=== PATIENT | female | born 1950 | race Caucasian/White ===

== ENCOUNTER 2020-06-16 12:52 | Emergency (ER) | payer MEDICARE ==
[2020-06-16 13:27] LABS: #Lymphocytes 0.9 thou/uL (1.20-3.40); #Monocytes 0.3 thou/uL (0.11-0.59); #Neutrophils 2.4 thou/uL (1.40-6.50); %Basophils 0.6 % (0.0-1.0); %Eosinophils 0.1 % (0.0-10.0); %Lymphocytes 24.8 % (21.0-51.0); %Monocytes 7.1 % (0.0-10.0); %Neutrophils 67.4 % (42.0-75.0); Hemoglobin 13.9 g/dL (12.0-16.0); Mean Corpuscular HGB CONC 32.4 g/dL (32.0-36.0); Mean Corpuscular Hemoglobin 28.4 pg (27.0-31.0); Mean Corpuscular Volume 87.5 fL (78.0-98.0); Mean Platelet Volume 9.2 fL (7.4-10.4); Platelet Count 142 thou/uL (130-400); RBC Distribution Width 14.6 % (11.5-14.5); Red Blood Cell (RBC) Count 4.89 mill/uL (4.20-5.40); White Blood Cell (WBC) Count 3.6 thou/uL (4.8-10.8)
[2020-06-16 13:43] LABS: ALT (SGPT) 26 U/L (8-55); AST (SGOT) 30 U/L (5-34); Albumin 3.6 g/dL (3.4-4.8); Alkaline Phosphatase 121 U/L (40-110); Anion Gap 18 mmol/L (10-20); BUN (Urea Nitrogen) 37 mg/dL (9.8-20.1); Bilirubin, Total 0.3 mg/dL (0.2-1.2); Calc. Creatinine Clearance 0 mL/min (70-130); Calcium 8.1 mg/dL (7.8-10.44); Carbon Dioxide 23 mmol/L (23-31); Chloride 94 mmol/L (98-107); Glucose 435 mg/dL (80-115); Potassium 3.5 mmol/L (3.5-5.1); Protein, Total 6.6 g/dL (6.0-8.3); Sodium 131 mmol/L (136-145)
--- NOTE | 2020-06-16 20:22 | RAD ---
PORTABLE CHEST: Date: 06-16-2020 Comparison: 10-22-18 FINDINGS: The heart is normal in size. There is some linear streaking in the left base that may be subsegmental atelectasis. The lungs markings in general are a little prominent, but no different over time. No lo bar consolidation, effusion, or pneumothorax was seen. Some old rib fractures are seen in the left up per chest. I cannot exclude newer ones, but at least some of the are old. IMPRESSION: 1. Old left sided rib fractures. 2. Left basilar streaking, most likely atelectasis. POS: HOME
--- NOTE | 2020-06-16 21:00 | CT ---
CT OF THE THORAX WITHOUT CONTRAST: Date: 06-16-2020 FINDINGS: There is no sign of mediastinal mass. There is slightly more lymph nodes than usual in the mediastinu m in the paratracheal regions, the largest being about 1.4 cm in size just above the darlene. The find ings are nonspecific. Some coronary artery calcification is seen in each circulation. Regarding the lungs, there is a patchy parenchymal density in the right upper lobe that is probably r elated to infection, recent or remote. Elsewhere, there are no major lobar infiltrates, but there are findings of scarring and/or atelectasis in the lower lobes, especially left lower lobe. There is no pneumothorax or significant pleural effusion. There is definitely a fracture of the left 6th rib, but it does not appear acute. It may be subacute or old. Some of the ribs above this level show a little bit of unusual turns in the cortex suggesting older rib fractures. No dramatic acute fracture is seen. Scans into the upper abdomen showed no acute changes in the areas visualized. The rounded soft tissue density just above and medial to the spleen is probably ectopic splenic tissue. IMPRESSION: 1. Fracture of the left 6th rib which is either old or subacute. Other older fractures are suggested above. No acute change such as a pneumothorax. 2. Basilar atelectasis and scarring, most prominent on the left side. Findings discussed with Dr. Garrison at 1438 on 06-16-2020. POS: HOME
== END 2020-06-16 18:28 | disposition home or self-care (01) ==
LOC: BURERS 12:52
DX: S22.32XA Fracture of one rib, left side, initial encounter for closed fracture (principal); I10 Essential (primary) hypertension; E11.9 Type 2 diabetes mellitus without complications; I25.10 Atherosclerotic heart disease of native coronary artery without angina pectoris; F17.290 Nicotine dependence, other tobacco product, uncomplicated; W19.XXXA Unspecified fall, initial encounter
CPT/HCPCS: 71045; 71250; 80053; 83880; 84484; 85025; 93005

== ENCOUNTER 2020-06-19 18:53 | Emergency (ER) | payer MEDICARE ==
[2020-06-19] MEDS ORDERED: Azithromycin 500 MG VIAL ONE (19:28)
[2020-06-19] MEDS ORDERED: cefTRIAXone\\ROCEPHIN 2 GM VIAL ONE (19:28)
--- NOTE | 2020-06-19 19:31 | RAD ---
PORTABLE CHEST: 06/19/20 An AP portable film at 191 is compared with a 06/16 chest film, as well as the CT done on that date. The patient has developed new infiltrates in the lung bases, especially the left lower lobe. There is a decided interstitial element to some of these infiltrates. Given the patient's history and current conditions, COVID should be included in the differential. The upper lobes are relatively clear. Ther e are no large effusions. The cardiac size is normal. IMPRESSION: New developing basilar infiltrates, especially left lower lobe. Findings discussed with Dr. Lima at 1920 on 06/19/20. POS: HOME
[2020-06-19 19:34] LABS: #Lymphocytes 0.6 thou/uL (1.20-3.40); #Monocytes 0.3 thou/uL (0.11-0.59); #Neutrophils 3.6 thou/uL (1.40-6.50); %Basophils 0.2 % (0.0-1.0); %Eosinophils 0.1 % (0.0-10.0); %Lymphocytes 14.4 % (21.0-51.0); %Monocytes 5.8 % (0.0-10.0); %Neutrophils 79.6 % (42.0-75.0); Hemoglobin 14.1 g/dL (12.0-16.0); Mean Corpuscular HGB CONC 32.5 g/dL (32.0-36.0); Mean Corpuscular Hemoglobin 28.2 pg (27.0-31.0); Mean Corpuscular Volume 86.9 fL (78.0-98.0); Platelet Count 170 thou/uL (130-400); RBC Distribution Width 14.6 % (11.5-14.5); White Blood Cell (WBC) Count 4.5 thou/uL (4.8-10.8)
[2020-06-19 19:45] LABS: ALT (SGPT) 25 U/L (8-55); AST (SGOT) 48 U/L (5-34); Albumin 3.3 g/dL (3.4-4.8); Alkaline Phosphatase 114 U/L (40-110); Anion Gap 20 mmol/L (10-20); BUN (Urea Nitrogen) 42 mg/dL (9.8-20.1); Bilirubin, Total 0.4 mg/dL (0.2-1.2); CK (CPK) 210 U/L (29-168); Calc. Creatinine Clearance 0 mL/min (70-130); Calcium 7.6 mg/dL (7.8-10.44); Carbon Dioxide 30 mmol/L (23-31); Chloride 86 mmol/L (98-107); Globulin 2.5 g/dL (2.4-3.5); Glucose 531 mg/dL (80-115); Potassium 3.4 mmol/L (3.5-5.1); Protein, Total 5.8 g/dL (6.0-8.3); Sodium 133 mmol/L (136-145)
[2020-06-19 20:02] LABS: CKMB 1.3 ng/mL (0-6.6)
[2020-06-19 20:17] LABS: SARS-CoV-2 NAA Rapid Test DETECTED (NotDetected)
== END 2020-06-19 20:15 | disposition short-term general hospital (02) ==
LOC: BURERS 18:53
DX: U07.1 COVID-19 (principal); J12.89 Other viral pneumonia; J96.00 Acute respiratory failure, unspecified whether with hypoxia or hypercapnia; I25.10 Atherosclerotic heart disease of native coronary artery without angina pectoris; E11.9 Type 2 diabetes mellitus without complications; I10 Essential (primary) hypertension; Z87.891 Personal history of nicotine dependence
CPT/HCPCS: 0240U; 71045; 80053; 82550; 82553; 83605; 84484; 85025; 85379; 87040; 96365; J0456; J0696

== ENCOUNTER 2020-07-02 19:25 | Inpatient (IN) | payer MEDICARE ==
[2020-07-02 22:41] VITALS: BMI 28.3
[2020-07-03] MEDS ORDERED: hydrALAZINE 25 MG TAB PO PRN (07:00)
[2020-07-03] MEDS: FLUoxetine HCl 10 MG CAP PO SCH (08:11)
[2020-07-03] MEDS: Cholecalciferol (Vitamin D3) 400 UNITS TAB PO SCH (08:14)
[2020-07-03] MEDS: Aspirin 81 mg Enteric Coated Tablet PO SCH (08:14)
[2020-07-03] MEDS: Pregabalin 50 MG CAP PO SCH ×3 (08:15→20:25)
[2020-07-03] MEDS: predniSONE 20 MG TAB PO SCH (08:16)
[2020-07-03] MEDS: NIFEdipine XL 30 MG TAB PO SCH (08:17)
[2020-07-03] MEDS: Metoprolol Tartrate 25 MG TAB PO SCH ×2 (08:18→20:27)
[2020-07-03] MEDS: Furosemide 20 MG TAB PO SCH (08:18)
[2020-07-03] MEDS: Ascorbic Acid 500 mg Chewable Tablet PO SCH (08:18)
[2020-07-03] MEDS: Clopidogrel Bisulfate 75 MG TAB PO SCH (08:19)
[2020-07-03] MEDS: glipiZIDE 5 MG TAB PO SCH ×2 (08:19→16:23)
[2020-07-03] MEDS: Cilostazol 100 MG TAB PO SCH ×2 (08:19→20:27)
[2020-07-03] MEDS: UBIDECARENONE 10 MG PO SCH (08:28)
[2020-07-03] MEDS: Lantus 1000 UNITS/10 ML VIAL SC SCH ×2 (08:29→20:25)
[2020-07-03] MEDS: Doxycycline 100 MG CAP PO SCH ×2 (08:31→20:27)
[2020-07-03] MEDS ORDERED: FLUOXETINE HCL 20 MG PO SCH (09:00)
[2020-07-03] MEDS ORDERED: Non-Formulary Item 1 EACH (Pregabalin [Lyrica] 150 MG Capsule) PO SCH (09:00)
[2020-07-03] MEDS ORDERED: Non-Formulary Item 1 EACH (Omeprazole [Omeprazole] 40 MG Capsule.Dr) PO SCH (09:00)
[2020-07-03] MEDS ORDERED: Non-Formulary Item 1 EACH (Insulin Glargine,Hum.Rec.Anlog [Lantus Solostar] 100 UNIT/ML P SQ SCH (09:00)
[2020-07-03] MEDS ORDERED: Non-Formulary Item 1 EACH (Cilostazol [Cilostazol] 50 MG Tablet) PO SCH (09:00)
[2020-07-03] MEDS ORDERED: Non-Formulary Item 1 EACH (Pravastatin Sodium [Pravastatin Sodium] 80 MG Tablet) PO SCH (09:00)
[2020-07-03] MEDS ORDERED: NIFEDIPINE 60 MG PO SCH (09:00)
[2020-07-03] MEDS ORDERED: Non-Formulary Item 1 EACH (Ubidecarenone [Co Q-10] 10 MG Capsule) PO SCH (09:00)
--- NOTE | 2020-07-03 16:53 | HP ---
HISTORY OF PRESENT ILLNESS: A 70-year-old female admitted to [facility] for continued recovery and therapy of COVID pneumonia, which is resolving. She initially experienced a fall on the 16 of June and was seen in the emergency room at [place], diagnosed with 6 left rib fractures and at that time was experiencing difficulty breathing, but it was thought to be related to her rib pain. On 06/19/2020, she returned to [facility]'s ER with shortness of breath, hypoxia, and low-grade fever. Upon arrival her O2 saturation on room air was 38% and 69% on 100% face mask. Her rapid COVID was positive and her chest x-ray showed bibasilar infiltrates. She was transferred and admitted to [facility] in [place]. Over the course of her acute stay, she was maintained on high-flow oxygen. Over the last few days she was gradually weaned down to 2 L per NC, and transferred yesterday. Since arrival, she has maintained her saturations at 93% on 2 L. CURRENT MEDICATIONS: She is on, 1. Lyrica 200 mg t.i.d. 2. Fluoxetine 40 mg daily. 3. Metoprolol 25 mg b.i.d. 4. Nifedipine 60 mg daily. 5. Hydralazine 25 mg p.o. t.i.d. 6. Atorvastatin 20 mg daily. 7. Lantus insulin 20 units b.i.d. 8. Furosemide 20 mg daily. 9. CoQ10 daily. 10. Aspirin 81 mg daily. 11. Cilostazol 50 mg b.i.d. 12. Plavix 75 mg daily. 13. Glipizide 5 mg b.i.d. She was started on prednisone and doxycycline as part of her COVID regimen and is being weaned off both of those. PAST MEDICAL HISTORY: DMT2, hypertension, CAD. PAST SURGICAL HISTORY: Gallbladder, Hyst, CABG. FAMILY HISTORY: Noncontributory. SOCIAL HISTORY: prior to this admission was a tobacco smoker and vaped, She agrees today to quit smoking,denies nicotine craving. ALLERGIES: NO KNOWN ALLERGIES. REVIEW OF SYSTEMS: CONSTITUTIONAL: She denies fever, chills, sweats. She reports poor appetite, weight loss. EYES: She denies vision changes, eye pain, discharge or redness. ENT: She denies hearing loss, ear pain, URI or sore throat. RESPIRATION: She denies cough or wheeze. History of asthma. She does continue to experience shortness of breath especially with exertion. CV: She denies chest pain, edema, claudication, palpitations. GI: She denies constipation, diarrhea, indigestion, dysphagia, food allergies or intolerances. : She denies frequency, dysuria, nocturia, incontinence. MUSCULOSKELETAL: She denies muscle weakness, pain, joint pain, joint swelling. SKIN: She denies rash or lesion. HEMATOLOGIC/LYMPHATIC: She denies bruises easily, anemia, history of blood clots or blood cancer. NEURO: She denies dizziness, syncope, weakness, ataxia or confusion. She complains of a headache this morning. PSYCH: She denies past mental illness, sleep disturbance, depression or anxiety. PHYSICAL EXAMINATION: VITAL SIGNS: Temperature 97.9, heart rate 86, respirations 18, 93% on 2 L nasal cannula, blood pressure 179/85. GENERAL APPEARANCE: Alert, oriented x3. No acute distress. EYES: Conjunctiva clear. No discharge. PERRLA. EOMs intact. Oral cavity moist mucous membranes. No ulcer or lesion. Normal dentition. NECK: Thyroid supple. No lymphadenopathy. No JVD. No carotid bruit. No thyromegaly. CV: Regular rate and rhythm. Normal S1, S2. No murmurs. RESPIRATIONS: Clear to auscultation. Good air entry bilaterally. No wheezes. ABDOMEN: Soft, nontender. No mass or megaly. Normal bowel sounds. NEURO: CN II through XII grossly intact. Motor function normal. SKIN: Normal. No rash. PSYCH: Subdued mood, appropriate affect. Normal speech. No thought disorder. However, she requests that her family not be allowed to visit at this time. She offered no explanation for that request. LABORATORY DATA: Her most recent CBC, white blood count 10.1, H and H 15.4, 45.1, platelet count 453, neutrophils 87.5, lymphocytes 6.3, no bands. This is done on 06/30/2020. Also on 06/30, sodium 136, potassium 3.7, chloride 106, carbon dioxide 21. BUN 25, creatinine 1.06, GFR 52. Her glucose was 410, calcium 8.4, magnesium 2. IMAGING STUDIES: Her most recent chest x-ray was done on 06/23/2020, bilateral basilar lung infiltrates, improved. ASSESSMENT: 1. COVID pneumonia, resolving. 2. Weight loss of 12 pounds since admission 3. Diabetes mellitus type 2- uncontrolled 4. Hypertension. 5. Coronary artery disease. PLAN: 1. Continue to monitor respiratory status closely, O2 to keep sats above 92%. 2. Physical Therapy to improve stamina and strength. 3. Wean off prednisone. 4. Manage hyperglycemia with insulin, adjust other medications as needed 5. Manage hypertension with current medications, titrate as necessary. 6. Explore her home situation with and family support; provide resources as needed. Job ID: [id number] [id number]
[2020-07-03] MEDS ORDERED: Dextrose 50% Abboject 50 ML SYRINGE IVP PRN (17:45)
[2020-07-03] MEDS ORDERED: Dextrose 5% in Water 1,000 ML IV PRN (17:45)
[2020-07-03] MEDS: HumaLOG 300 UNITS/3 ML VIAL SC PRN ×2 (18:17→20:50)
[2020-07-03] MEDS: Atorvastatin Calcium 10 MG TAB PO SCH (20:26)
[2020-07-03] MEDS ORDERED: HumaLOG 300 UNITS/3 ML VIAL SC SCH (21:00)
[2020-07-04 05:19] LABS: #Basophils 0.1 thou/uL (0.0-0.2); #Eosinphils 0.1 thou/uL (0.0-0.7); #Lymphocytes 1.9 thou/uL (1.20-3.40); #Monocytes 0.8 thou/uL (0.11-0.59); #Neutrophils 7.1 thou/uL (1.40-6.50); %Basophils 0.8 % (0.0-1.0); %Neutrophils 71.1 % (42.0-75.0); Hemoglobin 14.7 g/dL (12.0-16.0); Mean Corpuscular HGB CONC 32.2 g/dL (32.0-36.0); Mean Corpuscular Hemoglobin 28.6 pg (27.0-31.0); Mean Corpuscular Volume 88.8 fL (78.0-98.0); Mean Platelet Volume 8.1 fL (7.4-10.4); Platelet Count 381 thou/uL (130-400); RBC Distribution Width 14.7 % (11.5-14.5); Red Blood Cell (RBC) Count 5.13 mill/uL (4.20-5.40)
[2020-07-04 05:46] LABS: ALT (SGPT) 396 U/L (8-55); AST (SGOT) 116 U/L (5-34); Alkaline Phosphatase 322 U/L (40-110); Anion Gap 15 mmol/L (10-20); BUN (Urea Nitrogen) 25 mg/dL (9.8-20.1); Bilirubin, Total 0.6 mg/dL (0.2-1.2); Calc. Creatinine Clearance 70 mL/min (70-130); Calcium 8.6 mg/dL (7.8-10.44); Carbon Dioxide 22 mmol/L (23-31); Chloride 106 mmol/L (98-107); Globulin 2.5 g/dL (2.4-3.5); Glucose 148 mg/dL (80-115); Potassium 3.6 mmol/L (3.5-5.1); Protein, Total 5.5 g/dL (6.0-8.3); Sodium 139 mmol/L (136-145)
[2020-07-04] MEDS: Lantus 1000 UNITS/10 ML VIAL SC SCH ×2 (09:25→20:20)
[2020-07-04] MEDS: Pregabalin 50 MG CAP PO SCH ×3 (09:27→20:21)
[2020-07-04] MEDS: Aspirin 81 mg Enteric Coated Tablet PO SCH (09:27)
[2020-07-04] MEDS: Cilostazol 100 MG TAB PO SCH ×2 (09:28→20:22)
[2020-07-04] MEDS: NIFEdipine XL 30 MG TAB PO SCH (09:29)
[2020-07-04] MEDS: Metoprolol Tartrate 25 MG TAB PO SCH ×2 (09:29→20:23)
[2020-07-04] MEDS: Cholecalciferol (Vitamin D3) 400 UNITS TAB PO SCH (09:30)
[2020-07-04] MEDS: FLUoxetine HCl 10 MG CAP PO SCH (09:30)
[2020-07-04] MEDS: predniSONE 20 MG TAB PO SCH (09:30)
[2020-07-04] MEDS: Clopidogrel Bisulfate 75 MG TAB PO SCH (09:30)
[2020-07-04] MEDS: Furosemide 20 MG TAB PO SCH (09:30)
[2020-07-04] MEDS: Doxycycline 100 MG CAP PO SCH ×2 (09:31→20:23)
[2020-07-04] MEDS: Ascorbic Acid 500 mg Chewable Tablet PO SCH (09:31)
[2020-07-04] MEDS: UBIDECARENONE 10 MG PO SCH (09:32)
[2020-07-04] MEDS: traMADol HCl 50 MG TAB PO PRN (09:40)
[2020-07-04] MEDS: HumaLOG 300 UNITS/3 ML VIAL SC PRN ×3 (12:15→20:20)
[2020-07-04] MEDS: Atorvastatin Calcium 10 MG TAB PO SCH (20:22)
[2020-07-05] MEDS: HumaLOG 300 UNITS/3 ML VIAL SC PRN ×4 (07:44→21:27)
[2020-07-05] MEDS ORDERED: predniSONE 20 MG TAB PO SCH (08:00)
[2020-07-05] MEDS: Cilostazol 100 MG TAB PO SCH ×2 (09:12→21:24)
[2020-07-05] MEDS: FLUoxetine HCl 10 MG CAP PO SCH (09:13)
[2020-07-05] MEDS: Cholecalciferol (Vitamin D3) 400 UNITS TAB PO SCH (09:13)
[2020-07-05] MEDS: predniSONE 20 MG TAB PO SCH (09:13)
[2020-07-05] MEDS: Metoprolol Tartrate 25 MG TAB PO SCH ×2 (09:13→21:24)
[2020-07-05] MEDS: Clopidogrel Bisulfate 75 MG TAB PO SCH (09:13)
[2020-07-05] MEDS: Aspirin 81 mg Enteric Coated Tablet PO SCH (09:13)
[2020-07-05] MEDS: Ascorbic Acid 500 mg Chewable Tablet PO SCH (09:13)
[2020-07-05] MEDS: Furosemide 20 MG TAB PO SCH (09:13)
[2020-07-05] MEDS: NIFEdipine XL 30 MG TAB PO SCH (09:14)
[2020-07-05] MEDS: Pregabalin 50 MG CAP PO SCH ×3 (09:14→21:24)
[2020-07-05] MEDS: UBIDECARENONE 10 MG PO SCH (09:17)
[2020-07-05] MEDS: Lantus 1000 UNITS/10 ML VIAL SC SCH ×2 (09:18→21:27)
[2020-07-05] MEDS ORDERED: Calcium Carbonate 500 MG ChewTAB PO PRN ×2 (11:20→20:34)
[2020-07-05] MEDS: Atorvastatin Calcium 10 MG TAB PO SCH (21:24)
[2020-07-05] MEDS: traMADol HCl 50 MG TAB PO PRN (21:26)
[2020-07-06] MEDS: traMADol HCl 50 MG TAB PO PRN (04:20)
[2020-07-06] MEDS ORDERED: predniSONE 20 MG TAB PO SCH (08:00)
[2020-07-06] MEDS: Aspirin 81 mg Enteric Coated Tablet PO SCH (08:28)
[2020-07-06] MEDS: Clopidogrel Bisulfate 75 MG TAB PO SCH (08:28)
[2020-07-06] MEDS: Cilostazol 100 MG TAB PO SCH ×2 (08:28→20:43)
[2020-07-06] MEDS: Cholecalciferol (Vitamin D3) 400 UNITS TAB PO SCH (08:30)
[2020-07-06] MEDS: Pregabalin 50 MG CAP PO SCH ×3 (08:31→20:41)
[2020-07-06] MEDS: Furosemide 20 MG TAB PO SCH (08:31)
[2020-07-06] MEDS: NIFEdipine XL 30 MG TAB PO SCH (08:32)
[2020-07-06] MEDS: Lantus 1000 UNITS/10 ML VIAL SC SCH ×2 (08:33→20:46)
[2020-07-06] MEDS: FLUoxetine HCl 10 MG CAP PO SCH (08:33)
[2020-07-06] MEDS: Ascorbic Acid 500 mg Chewable Tablet PO SCH (08:33)
[2020-07-06] MEDS: UBIDECARENONE 10 MG PO SCH (08:34)
[2020-07-06] MEDS: Metoprolol Tartrate 25 MG TAB PO SCH ×2 (08:39→20:41)
[2020-07-06] MEDS: HumaLOG 300 UNITS/3 ML VIAL SC PRN ×3 (11:44→20:47)
[2020-07-06] MEDS: Atorvastatin Calcium 10 MG TAB PO SCH (20:39)
[2020-07-07 05:08] LABS: #Basophils 0.1 thou/uL (0.0-0.2); #Eosinphils 0.2 thou/uL (0.0-0.7); #Lymphocytes 2.5 thou/uL (1.20-3.40); #Monocytes 0.8 thou/uL (0.11-0.59); #Neutrophils 7.4 thou/uL (1.40-6.50); %Basophils 0.7 % (0.0-1.0); %Eosinophils 1.6 % (0.0-10.0); %Lymphocytes 22.9 % (21.0-51.0); %Monocytes 7.3 % (0.0-10.0); %Neutrophils 67.5 % (42.0-75.0); Hemoglobin 13.6 g/dL (12.0-16.0); Mean Corpuscular HGB CONC 32.9 g/dL (32.0-36.0); Mean Corpuscular Hemoglobin 28.5 pg (27.0-31.0); Mean Corpuscular Volume 86.6 fL (78.0-98.0); Mean Platelet Volume 7.7 fL (7.4-10.4); Platelet Count 322 thou/uL (130-400); RBC Distribution Width 14.2 % (11.5-14.5); Red Blood Cell (RBC) Count 4.76 mill/uL (4.20-5.40)
[2020-07-07 05:21] LABS: ALT (SGPT) 359 U/L (8-55); AST (SGOT) 107 U/L (5-34); Alkaline Phosphatase 321 U/L (40-110); Anion Gap 13 mmol/L (10-20); BUN (Urea Nitrogen) 29 mg/dL (9.8-20.1); Bilirubin, Total 0.4 mg/dL (0.2-1.2); Calc. Creatinine Clearance 60 mL/min (70-130); Calcium 9.4 mg/dL (7.8-10.44); Carbon Dioxide 29 mmol/L (23-31); Chloride 101 mmol/L (98-107); Globulin 2.5 g/dL (2.4-3.5); Glucose 130 mg/dL (80-115); Potassium 3.8 mmol/L (3.5-5.1); Protein, Total 5.5 g/dL (6.0-8.3); Sodium 139 mmol/L (136-145)
[2020-07-07] MEDS: Pregabalin 50 MG CAP PO SCH ×2 (09:15→20:22)
[2020-07-07] MEDS: FLUoxetine HCl 10 MG CAP PO SCH (09:16)
[2020-07-07] MEDS: Clopidogrel Bisulfate 75 MG TAB PO SCH (09:17)
[2020-07-07] MEDS: Cholecalciferol (Vitamin D3) 400 UNITS TAB PO SCH (09:17)
[2020-07-07] MEDS: Metoprolol Tartrate 25 MG TAB PO SCH ×2 (09:17→20:22)
[2020-07-07] MEDS: NIFEdipine XL 30 MG TAB PO SCH (09:17)
[2020-07-07] MEDS: Furosemide 20 MG TAB PO SCH (09:17)
[2020-07-07] MEDS: Ascorbic Acid 500 mg Chewable Tablet PO SCH (09:17)
[2020-07-07] MEDS: Aspirin 81 mg Enteric Coated Tablet PO SCH (09:19)
[2020-07-07] MEDS: Cilostazol 100 MG TAB PO SCH ×2 (09:19→20:24)
[2020-07-07] MEDS: UBIDECARENONE 10 MG PO SCH (09:20)
[2020-07-07] MEDS: Lantus 1000 UNITS/10 ML VIAL SC SCH ×2 (09:24→20:26)
--- NOTE | 2020-07-07 09:53 | CT ---
CT OF THE ABDOMEN WITH CONTRAST: DATE: 07/07/2020. COMPARISON: Comparison is made with a prior CT dated 11/27/2018. FINDINGS: The lung bases show extensive subacute and chronic interstitial changes. The patient has had COVID i n recent times, and this is on top of chronic changes. The current appearance suggests some further bronchiectasis and chronic changes in the lungs. Calcification is seen in the left coronary artery s ystem. A hiatal hernia was noted which was not seen on the prior study. Regarding the liver and spleen, I see no change since the 2019 scan. There are no focal hepatic lesi ons nor change in size of either organ. A piece of ectopic splenic tissue is see just anterior to th e spleen, as before. There has been a prior cholecystectomy. There are no dilated ducts in the bili lavell system. The pancreas and adrenal glands were unremarkable. A fat containing mass in the posterior left kidne y is most likely an angiomyelipoma. It measures 2.3 cm today and was closer to 2 cm in size before. The aorta shows calcification, but no aneurysm. The bowel shows no evidence of obstruction, but the re is a rather large fecal load in the colon. IMPRESSION: 1. No focal hepatic lesion seen. 2. Size of liver and spleen comparable to 2019. 3. Constipation. 4. Small angiomyelipoma of the left kidney, minimally larger than on the 2019 scan. 5. Hiatal hernia. 6. Rather extensive subacute and chronic basilar interstitial changes. POS: HOME
[2020-07-07] MEDS ORDERED: Iopamidol 370 76% 100 ML VIAL ONE (11:07)
[2020-07-07] MEDS: HumaLOG 300 UNITS/3 ML VIAL SC PRN ×2 (13:00→17:13)
[2020-07-07] MEDS: Senokot S 8.6-50 MG TAB PO PRN (13:00)
[2020-07-07] MEDS: traMADol HCl 50 MG TAB PO PRN (16:40)
[2020-07-07] MEDS: Atorvastatin Calcium 10 MG TAB PO SCH (20:22)
[2020-07-07] MEDS: Acetaminophen 500 MG TAB PO PRN (20:32)
[2020-07-08] MEDS: traMADol HCl 50 MG TAB PO PRN ×2 (04:31→20:19)
[2020-07-08] MEDS: NIFEdipine XL 30 MG TAB PO SCH (09:29)
[2020-07-08] MEDS: Senokot S 8.6-50 MG TAB PO PRN (09:29)
[2020-07-08] MEDS: Cilostazol 100 MG TAB PO SCH ×2 (09:30→20:17)
[2020-07-08] MEDS: Ascorbic Acid 500 mg Chewable Tablet PO SCH (09:30)
[2020-07-08] MEDS: FLUoxetine HCl 10 MG CAP PO SCH (09:30)
[2020-07-08] MEDS: Furosemide 20 MG TAB PO SCH (09:30)
[2020-07-08] MEDS: Pregabalin 50 MG CAP PO SCH ×2 (09:31→20:20)
[2020-07-08] MEDS: Clopidogrel Bisulfate 75 MG TAB PO SCH (09:32)
[2020-07-08] MEDS: UBIDECARENONE 10 MG PO SCH (09:32)
[2020-07-08] MEDS: Aspirin 81 mg Enteric Coated Tablet PO SCH (09:32)
[2020-07-08] MEDS: Cholecalciferol (Vitamin D3) 400 UNITS TAB PO SCH (09:32)
[2020-07-08] MEDS: Metoprolol Tartrate 25 MG TAB PO SCH ×2 (09:32→20:18)
[2020-07-08] MEDS: Lantus 1000 UNITS/10 ML VIAL SC SCH ×2 (09:34→20:21)
[2020-07-08] MEDS: HumaLOG 300 UNITS/3 ML VIAL SC PRN ×4 (10:15→20:24)
[2020-07-08] MEDS: Atorvastatin Calcium 10 MG TAB PO SCH (20:18)
[2020-07-08] MEDS: hydrOXYzine 25 MG TAB PO PRN (20:19)
[2020-07-09] MEDS: FLUoxetine HCl 10 MG CAP PO SCH (08:38)
[2020-07-09] MEDS: Pregabalin 50 MG CAP PO SCH ×2 (08:38→20:08)
[2020-07-09] MEDS: Aspirin 81 mg Enteric Coated Tablet PO SCH (08:39)
[2020-07-09] MEDS: Metoprolol Tartrate 25 MG TAB PO SCH ×2 (08:39→20:09)
[2020-07-09] MEDS: Ubidecarenone 50 MG CAP PO SCH (08:39)
[2020-07-09] MEDS: Clopidogrel Bisulfate 75 MG TAB PO SCH (08:39)
[2020-07-09] MEDS: Ascorbic Acid 500 mg Chewable Tablet PO SCH (08:39)
[2020-07-09] MEDS: Cholecalciferol (Vitamin D3) 400 UNITS TAB PO SCH (08:40)
[2020-07-09] MEDS: Furosemide 20 MG TAB PO SCH (08:40)
[2020-07-09] MEDS: NIFEdipine XL 30 MG TAB PO SCH (08:40)
[2020-07-09] MEDS: Cilostazol 100 MG TAB PO SCH ×2 (08:40→20:09)
[2020-07-09] MEDS: Lantus 1000 UNITS/10 ML VIAL SC SCH ×2 (08:48→20:10)
[2020-07-09] MEDS: Acetaminophen 500 MG TAB PO PRN (10:41)
[2020-07-09] MEDS: HumaLOG 300 UNITS/3 ML VIAL SC PRN ×3 (12:46→20:10)
[2020-07-09] MEDS: Atorvastatin Calcium 10 MG TAB PO SCH (20:09)
[2020-07-09] MEDS: traMADol HCl 50 MG TAB PO PRN (20:24)
[2020-07-10] MEDS: hydrOXYzine 25 MG TAB PO PRN ×2 (00:51→20:26)
[2020-07-10] MEDS: FLUoxetine HCl 10 MG CAP PO SCH (08:28)
[2020-07-10] MEDS: Aspirin 81 mg Enteric Coated Tablet PO SCH (08:33)
[2020-07-10] MEDS: Pregabalin 50 MG CAP PO SCH ×2 (08:35→20:19)
[2020-07-10] MEDS: Ascorbic Acid 500 mg Chewable Tablet PO SCH (08:36)
[2020-07-10] MEDS: Metoprolol Tartrate 25 MG TAB PO SCH ×2 (08:37→20:20)
[2020-07-10] MEDS: Cilostazol 100 MG TAB PO SCH ×2 (08:37→20:21)
[2020-07-10] MEDS: NIFEdipine XL 30 MG TAB PO SCH (08:38)
[2020-07-10] MEDS: Clopidogrel Bisulfate 75 MG TAB PO SCH (08:38)
[2020-07-10] MEDS: Furosemide 20 MG TAB PO SCH (08:38)
[2020-07-10] MEDS: Cholecalciferol (Vitamin D3) 400 UNITS TAB PO SCH (08:39)
[2020-07-10] MEDS: Lantus 1000 UNITS/10 ML VIAL SC SCH ×2 (08:39→20:56)
[2020-07-10] MEDS: Ubidecarenone 50 MG CAP PO SCH (08:40)
[2020-07-10] MEDS ORDERED: Insulin Glargine 35 UNITS in Pre-Filled Syringe 1 EACH SC SCH (09:00)
[2020-07-10] MEDS: HumaLOG 300 UNITS/3 ML VIAL SC PRN ×3 (12:41→20:57)
[2020-07-10] MEDS: Atorvastatin Calcium 10 MG TAB PO SCH (20:19)
[2020-07-10] MEDS: Senokot S 8.6-50 MG TAB PO PRN (20:25)
[2020-07-10] MEDS: traMADol HCl 50 MG TAB PO PRN (20:26)
[2020-07-11 05:30] LABS: ALT (SGPT) 160 U/L (8-55); AST (SGOT) 62 U/L (5-34); Albumin 2.8 g/dL (3.4-4.8); Alkaline Phosphatase 246 U/L (40-110); Bilirubin, Direct 0.2 mg/dL (0.1-0.3); Bilirubin, Total 0.4 mg/dL (0.2-1.2); Protein, Total 5.6 g/dL (5.8-8.1)
[2020-07-11] MEDS: FLUoxetine HCl 10 MG CAP PO SCH (08:07)
[2020-07-11] MEDS: NIFEdipine XL 30 MG TAB PO SCH (08:08)
[2020-07-11] MEDS: Metoprolol Tartrate 25 MG TAB PO SCH (08:08)
[2020-07-11] MEDS: Ubidecarenone 50 MG CAP PO SCH (08:08)
[2020-07-11] MEDS: Ascorbic Acid 500 mg Chewable Tablet PO SCH (08:08)
[2020-07-11] MEDS: Cholecalciferol (Vitamin D3) 400 UNITS TAB PO SCH (08:08)
[2020-07-11] MEDS: Pregabalin 50 MG CAP PO SCH (08:09)
[2020-07-11] MEDS: Cilostazol 100 MG TAB PO SCH (08:10)
[2020-07-11] MEDS: Furosemide 20 MG TAB PO SCH (08:10)
[2020-07-11] MEDS: Aspirin 81 mg Enteric Coated Tablet PO SCH (08:10)
[2020-07-11] MEDS: Clopidogrel Bisulfate 75 MG TAB PO SCH (08:11)
[2020-07-11] MEDS: Lantus 1000 UNITS/10 ML VIAL SC SCH (08:12)
[2020-07-11] MEDS: HumaLOG 300 UNITS/3 ML VIAL SC PRN ×2 (12:14→17:28)
[2020-07-11 17:34] VITALS: BP 141/74; TEMP 97.5
--- NOTE | 2020-07-13 09:16 | DIS ---
DATE OF ADMISSION: 07/02/2020 DATE OF DISCHARGE: 07/11/2020 DISCHARGE DIAGNOSES: 1. COVID pneumonia. 2. Rib fracture #6, status post fall. 3. Uncontrolled diabetes mellitus. 4. Peripheral vascular disease. 5. COPD-tobacco dependence HOSPITAL COURSE: A 70-year-old female admitted to [facility] for recovery of COVID pneumonia. She was originally admitted to [facility] in [place]. Just two days prior to her admission she had a fall that she is unable to explain, sustained a left rib fracture. She says her knees just crumpled. She returned on 06/19 to [facility] ER with hypoxia. Her initial room air sat was 38% and she was 69% on 100% face mask. Her chest x-ray showed bilateral bibasilar infiltrates. She initially required high-flow oxygen, was gradually weaned down to 2 L per nasal cannula and transferred to recover at a skilled unit. During the course of her stay, she has been unable to maintain O2 saturation of 88% to 89% on room air. Therefore, she is sent home with oxygen 1 to 2 L nasal cannula. Her physical exam showed bilateral basilar crackles despite her ability to effectively use her incentive spirometer. She did not exhibit a cough, although she is a former smoker and has a history of COPD. There is no echo available as most of her admissions have been at [facility]. On 07/07/2020, she bumped her LFTs from normal on 06/22/2020. Her AST at that time was 107, ALT 359, alkaline phosphatase 321. They begin to normalize her day of discharge. Her glucose was uncontrolled throughout her stay, the only glucose readings that were within normal range were fasting. Her fasting ranged 50 to 117. Otherwise, her glucose was always above 200, often above 400. Her Lantus insulin dose was being titrated, she declined to resume metformin based on past renal decline; however renal function is normal. DIET: Diabetes, heart healthy. ACTIVITY: As tolerated. ALLERGIES: NO KNOWN ALLERGIES. CODE STATUS: Full code. HOME MEDICATIONS: 1. Lyrica 200 b.i.d. 2. Fluoxetine 40 mg daily. 3. Metoprolol 25 mg b.i.d. 4. Nifedipine 60 mg daily. 5. Hydralazine 25 mg p.r.n. t.i.d. 6. Atorvastatin 20 mg daily. 7. Lantus insulin 35 units a.m., 25 units at bedtime. 8. Furosemide 20 mg daily. 9. CoQ10 daily. 10. Aspirin 81 mg daily. 11. Cilostazol 50 mg b.i.d. 12. Plavix 25 mg daily. She will follow up with both Cardiology and her PCP. Her PCP is in [place], Cardiology doctor is in [facility]. Job ID: [id number]
== END 2020-07-11 19:52 | disposition home or self-care (01) | DRG 177 ==
LOC: BURMED 19:25
PROVIDERS: ADMIT Family Medicine; ATTEND Family Medicine
DX: U07.1 COVID-19 (principal); J12.82 Pneumonia due to coronavirus disease 2019; S22.32XA Fracture of one rib, left side, initial encounter for closed fracture; J44.0 Chronic obstructive pulmonary disease with (acute) lower respiratory infection; I10 Essential (primary) hypertension; I25.10 Atherosclerotic heart disease of native coronary artery without angina pectoris; E11.65 Type 2 diabetes mellitus with hyperglycemia; I73.9 Peripheral vascular disease, unspecified; Z95.1 Presence of aortocoronary bypass graft; Z90.710 Acquired absence of both cervix and uterus; Z87.891 Personal history of nicotine dependence
CPT/HCPCS: 36415; 36416; 74160; 80053; 80076; 82977; 83880; 85025; J1815; J7512; J7620; Q9967

== ENCOUNTER 2022-01-13 18:57 | Emergency (ER) | payer MEDICARE ==
[2022-01-13 19:44] LABS: #Basophils 0.1 thou/uL (0.0-0.2); #Lymphocytes 0.8 thou/uL (1.20-3.40); #Monocytes 0.7 thou/uL (0.11-0.59); #Neutrophils 9.6 thou/uL (1.40-6.50); %Basophils 0.5 % (0.0-1.0); %Eosinophils 0.3 % (0.0-10.0); %Lymphocytes 7.4 % (21.0-51.0); %Monocytes 5.8 % (0.0-10.0); %Neutrophils 86.1 % (42.0-75.0); Mean Corpuscular HGB CONC 32.2 g/dL (32.0-36.0); Mean Corpuscular Hemoglobin 26.6 pg (27.0-31.0); Mean Corpuscular Volume 82.5 fL (78.0-98.0); Mean Platelet Volume 9.8 fL (7.4-10.4); Platelet Count 239 thou/uL (130-400); RBC Distribution Width 16.4 % (11.5-14.5); Red Blood Cell (RBC) Count 5.26 mill/uL (4.20-5.40); White Blood Cell (WBC) Count 11.1 thou/uL (4.8-10.8)
[2022-01-13 19:58] LABS: ALT (SGPT) 25 U/L (8-55); AST (SGOT) 22 U/L (5-34); Albumin 3.7 g/dL (3.4-4.8); Alkaline Phosphatase 165 U/L (40-110); Anion Gap 16 mmol/L (10-20); BUN (Urea Nitrogen) 22 mg/dL (9.8-20.1); Bilirubin, Total 0.6 mg/dL (0.2-1.2); Calc. Creatinine Clearance 0 mL/min (70-130); Calcium 9.1 mg/dL (7.8-10.44); Carbon Dioxide 26 mmol/L (23-31); Chloride 95 mmol/L (98-107); Estimated GFR 33; Globulin 3.3 g/dL (2.4-3.5); Glucose 344 mg/dL (80-115); Potassium 4.3 mmol/L (3.5-5.1); Sodium 133 mmol/L (136-145)
[2022-01-13 20:52] LABS: SARS-CoV-2 NAA Rapid Test Not Detected (NotDetected)
[2022-01-13 23:09] LABS: Bilirubin Negative (Negative); Blood, Urine Moderate (Negative); Clarity Clear (Clear); Glucose, Urine (Dipstick) 500 mg/dL (Negative); Ketone, Urine Negative (Negative); Leukocyte Large (Negative); Nitrite Negative (Negative); Protein, Urine (Dipstick) 30 mg/dL (Neg-Trace); Specific Gravity, Urine 1.015 (1.005-1.030); Urobilinogen 0.2 mg/dL (Less than 2)
[2022-01-13 23:12] LABS: RBC/HPF 0-3 HPF (0-3); Squamous Epithelial 0-3 HPF (0-3); WBC/HPF Greater Than 50 HPF (0-3)
[2022-01-13 23:13] LABS: Bacteria/HPF 3+ HPF (None Seen)
[2022-01-13] MEDS ORDERED: Nitrofurantoin Monohyd/M-Cryst 100 MG CAP ONE (23:21)
== END 2022-01-13 23:40 | disposition home or self-care (01) ==
LOC: BURERS 18:57
DX: E10.65 Type 1 diabetes mellitus with hyperglycemia (principal); N39.0 Urinary tract infection, site not specified; I25.10 Atherosclerotic heart disease of native coronary artery without angina pectoris; I25.2 Old myocardial infarction; F17.290 Nicotine dependence, other tobacco product, uncomplicated; Z20.822 Contact with and (suspected) exposure to COVID-19; Z79.899 Other long term (current) drug therapy; Z79.01 Long term (current) use of anticoagulants; Z79.4 Long term (current) use of insulin; Z79.82 Long term (current) use of aspirin
CPT/HCPCS: 71045; 80053; 83605; 83880; 84484; 85025; 87040; 87077; 87086; 87186; 87804 ×2; 93005; 94760; 96360; 96361; 99285; U0002; 36415; 81003; 81015

== ENCOUNTER 2022-03-16 13:20 | Observation (INO) | payer MEDICARE ==
[2022-03-16 14:51] LABS: #Basophils 0.1 thou/uL (0.0-0.2); #Eosinphils 0.1 thou/uL (0.0-0.7); #Lymphocytes 2.1 thou/uL (1.20-3.40); #Monocytes 0.5 thou/uL (0.11-0.59); #Neutrophils 6.9 thou/uL (1.40-6.50); %Eosinophils 1.2 % (0.0-10.0); %Lymphocytes 21.6 % (21.0-51.0); %Monocytes 5.4 % (0.0-10.0); %Neutrophils 70.8 % (42.0-75.0); Hemoglobin 15.8 g/dL (12.0-16.0); Mean Corpuscular HGB CONC 32.4 g/dL (32.0-36.0); Mean Corpuscular Volume 83.4 fL (78.0-98.0); Mean Platelet Volume 7.9 fL (7.4-10.4); Platelet Count 324 thou/uL (130-400); RBC Distribution Width 15.2 % (11.5-14.5); Red Blood Cell (RBC) Count 5.84 mill/uL (4.20-5.40); White Blood Cell (WBC) Count 9.7 thou/uL (4.8-10.8)
[2022-03-16 15:05] LABS: ALT (SGPT) 34 U/L (8-55); AST (SGOT) 35 U/L (5-34); Albumin 4.1 g/dL (3.4-4.8); Alkaline Phosphatase 174 U/L (40-110); Anion Gap 19 mmol/L (10-20); BUN (Urea Nitrogen) 20 mg/dL (9.8-20.1); Bilirubin, Total 0.7 mg/dL (0.2-1.2); Calc. Creatinine Clearance 0 mL/min (70-130); Calcium 9.8 mg/dL (7.8-10.44); Carbon Dioxide 24 mmol/L (23-31); Chloride 98 mmol/L (98-107); Estimated GFR 35; Glucose 230 mg/dL (80-115); Lipase 9 U/L (8-78); Potassium 3.5 mmol/L (3.5-5.1); Protein, Total 8.1 g/dL (5.8-8.1); Sodium 137 mmol/L (136-145)
[2022-03-16 15:58] LABS: Bilirubin Negative (Negative); Blood, Urine Trace (Negative); Clarity Cloudy (Clear); Glucose, Urine (Dipstick) 100 mg/dL (Negative); Ketone, Urine 15 mg/dL (Negative); Leukocyte Moderate (Negative); Nitrite Positive (Negative); Protein, Urine (Dipstick) Negative (Neg-Trace); Urobilinogen 0.2 mg/dL (Less than 2)
[2022-03-16 16:03] LABS: Bacteria/HPF 4+ HPF (None Seen); RBC/HPF 0-3 HPF (0-3); Squamous Epithelial 0-3 HPF (0-3); WBC/HPF 21-50 HPF (0-3)
[2022-03-16] MEDS ORDERED: cefTRIAXone\\ROCEPHIN 1 GM VIAL ONE (16:59)
[2022-03-16 17:20] LABS: Lactic Acid 1.3 mmol/L (0.5-2.2)
[2022-03-16] MEDS ORDERED: Ondansetron PF 4 MG/2 ML Vial IVP PRN (18:54)
[2022-03-16 19:12] VITALS: BMI 29.2
[2022-03-16] MEDS: Acetaminophen 325 MG TAB PO PRN (20:51)
[2022-03-16] MEDS ORDERED: Loperamide HCl 2 MG CAP PO PRN (21:45)
[2022-03-16] MEDS ORDERED: Nitroglycerin 0.4 MG TAB (25 Tab Bottle) SL PRN (21:48)
[2022-03-16] MEDS ORDERED: Dextrose 50% Abboject 50 ML SYRINGE SLOW IVP PRN (22:00)
[2022-03-16] MEDS ORDERED: HumaLOG 300 UNITS/3 ML VIAL SC PRN (22:00)
[2022-03-16] MEDS ORDERED: Dextrose 5% in Water 1,000 ML IV PRN (22:00)
[2022-03-17 05:08] LABS: #Basophils 0.1 thou/uL (0.0-0.2); #Eosinphils 0.1 thou/uL (0.0-0.7); #Lymphocytes 1.4 thou/uL (1.20-3.40); #Monocytes 0.5 thou/uL (0.11-0.59); #Neutrophils 4.5 thou/uL (1.40-6.50); %Eosinophils 1.4 % (0.0-10.0); %Lymphocytes 21.5 % (21.0-51.0); %Monocytes 7.5 % (0.0-10.0); %Neutrophils 68.7 % (42.0-75.0); Hemoglobin 13.7 g/dL (12.0-16.0); Mean Corpuscular HGB CONC 33.4 g/dL (32.0-36.0); Mean Corpuscular Volume 80.9 fL (78.0-98.0); Mean Platelet Volume 7.5 fL (7.4-10.4); Platelet Count 234 thou/uL (130-400); RBC Distribution Width 14.8 % (11.5-14.5); Red Blood Cell (RBC) Count 5.07 mill/uL (4.20-5.40); White Blood Cell (WBC) Count 6.6 thou/uL (4.8-10.8)
[2022-03-17 05:23] LABS: ALT (SGPT) 30 U/L (8-55); AST (SGOT) 29 U/L (5-34); Albumin 3.6 g/dL (3.4-4.8); Alkaline Phosphatase 139 U/L (40-110); Anion Gap 14 mmol/L (10-20); BUN (Urea Nitrogen) 15 mg/dL (9.8-20.1); Bilirubin, Total 0.6 mg/dL (0.2-1.2); Calc. Creatinine Clearance 45 mL/min (70-130); Carbon Dioxide 23 mmol/L (23-31); Chloride 105 mmol/L (98-107); Estimated GFR 41; Globulin 3.2 g/dL (2.4-3.5); Glucose 239 mg/dL (80-115); Potassium 3.4 mmol/L (3.5-5.1); Protein, Total 6.8 g/dL (5.8-8.1); Sodium 139 mmol/L (136-145)
[2022-03-17] MEDS: Sodium Chloride 0.9% 1,000 ML IV SCH ×2 (07:22→16:34)
[2022-03-17 08:07] LABS: SARS-CoV-2 NAA Rapid Test Not Detected (NotDetected)
[2022-03-17] MEDS: Acetaminophen 325 MG TAB PO PRN (08:30)
[2022-03-17] MEDS: hydrALAZINE 25 MG TAB PO SCH ×2 (08:33→15:03)
[2022-03-17] MEDS: HumaLOG 300 UNITS/3 ML VIAL SC PRN ×3 (08:37→16:57)
[2022-03-17] MEDS ORDERED: FLUoxetine HCl 10 MG CAP PO SCH (09:00)
[2022-03-17] MEDS ORDERED: Furosemide 20 MG TAB PO SCH (09:00)
[2022-03-17] MEDS ORDERED: Apixaban 5 MG TAB PO SCH ×2 (09:00)
[2022-03-17] MEDS ORDERED: Multivit, Therapeutic 1 TAB PO SCH (09:00)
[2022-03-17] MEDS ORDERED: Lantus 1000 UNITS/10 ML VIAL SC SCH (09:00)
[2022-03-17] MEDS ORDERED: Potassium Chloride 20 MEQ TAB PO SCH (09:00)
[2022-03-17] MEDS ORDERED: Clopidogrel Bisulfate 75 MG TAB PO SCH (09:00)
[2022-03-17] MEDS ORDERED: Aspirin 81 mg Enteric Coated Tablet PO SCH (09:00)
[2022-03-17] MEDS: Loperamide HCl 2 MG CAP PO PRN ×2 (10:45→15:03)
[2022-03-17] MEDS ORDERED: cefTRIAXone\\ROCEPHIN 1 GM in Sodium Chloride 0.9% 100 ML IVPB SCH (16:00)
[2022-03-17 17:08] VITALS: BP 129/77; TEMP 98.8
[2022-03-17] MEDS ORDERED: Atorvastatin Calcium 10 MG TAB PO SCH (21:00)
[2022-03-17] MEDS ORDERED: Pregabalin 50 MG CAP PO SCH (21:00)
[2022-03-18] MEDS ORDERED: Saccharomyces boulardii 250 MG CAP PO SCH (09:00)
[2022-03-23] MEDS ORDERED: Semaglutide (Ozempic) 0.25 MG/0.2 ML Pen.Injctr SC SCH (09:00)
== END 2022-03-17 18:32 | disposition home or self-care (01) ==
LOC: BURERS 13:20 → BURMED 18:35
PROVIDERS: ADMIT Family Medicine; ATTEND Family Medicine
DX: E86.0 Dehydration (principal); R19.7 Diarrhea, unspecified; N39.0 Urinary tract infection, site not specified; I25.10 Atherosclerotic heart disease of native coronary artery without angina pectoris; E11.9 Type 2 diabetes mellitus without complications; I10 Essential (primary) hypertension; Z87.891 Personal history of nicotine dependence; Z79.01 Long term (current) use of anticoagulants; Z79.02 Long term (current) use of antithrombotics/antiplatelets; Z79.4 Long term (current) use of insulin; Z79.82 Long term (current) use of aspirin; Z79.899 Other long term (current) drug therapy; Z88.2 Allergy status to sulfonamides; Z95.1 Presence of aortocoronary bypass graft; Z95.5 Presence of coronary angioplasty implant and graft; Z20.822 Contact with and (suspected) exposure to COVID-19
CPT/HCPCS: 36415; 36416; 71045; 80053; 81003; 81015; 83605; 83690; 85025; 87040; 87077; 87086; 93005; 96366; G0378; J0696; J3490; J7050; U0003; U0005

== ENCOUNTER 2022-10-13 13:20 | Emergency (ER) | payer MEDICARE ==
[2022-10-13 13:56] LABS: Bilirubin Negative (Negative); Blood, Urine Trace (Negative); Clarity Clear (Clear); Glucose, Urine (Dipstick) 500 mg/dL (Negative); Ketone, Urine 80 mg/dL (Negative); Leukocyte Negative (Negative); Nitrite Negative (Negative); Protein, Urine (Dipstick) Negative (Neg-Trace); Urobilinogen 0.2 mg/dL (Less than 2)
[2022-10-13 14:03] LABS: Bacteria/HPF None Seen HPF (None Seen); RBC/HPF 0-3 HPF (0-3); Squamous Epithelial 0-3 HPF (0-3); WBC/HPF None Seen HPF (0-3); Yeast-Hyphae Rare HPF (None Seen)
[2022-10-13 14:04] LABS: Yeast-Budding Rare HPF (None Seen)
[2022-10-13 14:32] LABS: #Lymphocytes 1.2 thou/uL (1.20-3.40); #Monocytes 0.2 thou/uL (0.11-0.59); #Neutrophils 9.2 thou/uL (1.40-6.50); %Basophils 0.3 % (0.0-1.0); %Eosinophils 0.2 % (0.0-10.0); %Lymphocytes 10.9 % (21.0-51.0); %Monocytes 1.6 % (0.0-10.0); %Neutrophils 87.1 % (42.0-75.0); Hemoglobin 16.3 g/dL (12.0-16.0); Mean Corpuscular Hemoglobin 29.1 pg (27.0-31.0); Mean Platelet Volume 8.9 fL (7.4-10.4); Platelet Count 227 10x3/uL (130-400); RBC Distribution Width 13.4 % (11.5-14.5); White Blood Cell (WBC) Count 10.6 10x3/uL (4.8-10.8)
[2022-10-13 14:50] LABS: ALT (SGPT) 47 U/L (8-55); AST (SGOT) 39 U/L (5-34); Albumin 4.1 g/dL (3.4-4.8); Alkaline Phosphatase 163 U/L (40-110); Anion Gap 24 mmol/L (10-20); BUN (Urea Nitrogen) 23 mg/dL (9.8-20.1); Bilirubin, Total 0.9 mg/dL (0.2-1.2); Calc. Creatinine Clearance 0 mL/min (70-130); Calcium 9.6 mg/dL (7.8-10.44); Carbon Dioxide 17 mmol/L (23-31); Chloride 95 mmol/L (98-107); Estimated GFR 28; Globulin 4.1 g/dL (2.4-3.5); Lipase 14 U/L (8-78); Potassium 4.9 mmol/L (3.5-5.1); Protein, Total 8.2 g/dL (5.8-8.1); Sodium 131 mmol/L (136-145)
[2022-10-13 14:58] LABS: Glucose 604 mg/dL (80-115)
[2022-10-13] MEDS ORDERED: cefTRIAXone (ROCEPHIN) 2 GM VIAL ONE (15:06)
[2022-10-13] MEDS ORDERED: INSULIN REGULAR IN 0.9 % NACL 100 UNITS/100 ML BAG ONE (15:17)
== END 2022-10-13 16:19 | disposition short-term general hospital (02) ==
LOC: BURERS 13:20
DX: E11.10 Type 2 diabetes mellitus with ketoacidosis without coma (principal); I25.10 Atherosclerotic heart disease of native coronary artery without angina pectoris; I10 Essential (primary) hypertension; Z79.01 Long term (current) use of anticoagulants; Z79.899 Other long term (current) drug therapy
CPT/HCPCS: 36416; 80053; 81003; 81015; 83605; 83690; 85025; 87086; 93005; 96365; J0696; J1815

== ENCOUNTER 2024-05-17 08:49 | Emergency (ER) | payer MEDICARE ==
[2024-05-17] MEDS ORDERED: Iopamidol 370 76% 100 ML VIAL ONE (11:24)
[2024-05-17] MEDS ORDERED: Pantoprazole 40 MG VIAL ONE (13:42)
[2024-05-17] MEDS ORDERED: Ondansetron PF 4 MG/2 ML Vial ONE (13:42)
[2024-05-17] MEDS ORDERED: hydrALAZINE 20 MG/ML VIAL ONE (13:42)
[2024-05-17] MEDS ORDERED: Promethazine HCl 25 MG/ML VIAL ONE (13:42)
[2024-05-17] MEDS ORDERED: Insulin Regular, Human 100 UNIT/ML 10 ML VIAL ONE (13:42)
[2024-05-18 17:15] LABS: Follow-up Chemistry Comp? YES; Follow-up Result - Chemistry REPORT FAXED
[2024-05-21 16:18] LABS: Clarity Slightly Cloudy (Clear); Glucose, Urine (Dipstick) >=1000 mg/dL (Negative); Leukocyte Trace (Negative); Nitrite Negative (Negative); Protein, Urine (Dipstick) > or equal to 300 mg/dL (Neg-Trace); Specific Gravity, Urine 1.015 (1.005-1.030); pH, Urine 6.5 (5.0-9.0)
[2024-05-21 16:19] LABS: Bacteria/HPF 3+ HPF (None Seen); Bilirubin Negative (Negative); Blood, Urine Small (Negative); Ketone, Urine 80 mg/dL (Negative); RBC/HPF 0-3 HPF (0-3); Squamous Epithelial 0-3 HPF (0-3)
[2024-05-21 16:20] LABS: Albumin 4.1 g/dL (3.4-4.8); Alkaline Phosphatase 169 U/L (40-110); Anion Gap 25 mmol/L (10-20); BUN (Urea Nitrogen) 27 mg/dL (9.8-20.1); Calc. Creatinine Clearance 0 mL/min (70-130); Calcium 10.3 mg/dL (7.6-10.4); Carbon Dioxide 19 mmol/L (23-31); Chloride 101 mmol/L (98-107); Estimated GFR 28; Globulin 4.4 g/dL (2.4-3.5); Glucose 337 mg/dL (83-110); Protein, Total 8.5 g/dL (5.8-8.1); Sodium 141 mmol/L (136-145)
[2024-05-21 16:21] LABS: ALT (SGPT) 40 U/L (8-55); AST (SGOT) 31 U/L (5-34); Lipase 28 U/L (8-78); Troponin I 0.014 ng/mL (< 0.028)
[2024-05-21 16:24] LABS: Base Excess-Venous -3.4 mmol/L (-2.0 to 3.0); Bicarbonate (HCO3v) 22.1 mmol/L (22.0-28.0); CO2 Tension (PvCO2) 40.4 mmHg (42.0-51.0); Calcium, Ionized 1.16 mmol/L (1.15-1.33); Chloride 104 mmol/L (98-107); Hemoglobin - Calc 17.9 g/dL (12.0-16.0); Potassium 4.2 mmol/L (3.5-5.1); Sodium 141 mmol/L (138-145); T. Carbon Dioxide 23.3 mmol/L (22.0-28.0); vO2 Saturation-calc 54.1 % (60.0-85.0)
[2024-05-21 16:26] LABS: #Basophils 0.1 thou/uL (0.0-0.2); #Lymphocytes 1.5 thou/uL (1.20-3.40); #Monocytes 0.4 thou/uL (0.11-0.59); #Neutrophils 9.9 thou/uL (1.40-6.50); %Basophils 0.6 % (0.0-1.0); %Eosinophils 0.3 % (0.0-10.0); %Lymphocytes 12.6 % (21.0-51.0); %Neutrophils 83.5 % (42.0-75.0); Hematocrit 53.7 % (36.0-47.0); Hemoglobin 17.2 g/dL (12.0-16.0); Mean Corpuscular Hemoglobin 27.2 pg (27.0-31.0); Mean Corpuscular Volume 84.9 fl (78.0-98.0); Platelet Count 358 10x3/uL (130-400); RBC Distribution Width 12.8 % (11.5-14.5); Red Blood Cell (RBC) Count 6.32 mill/uL (4.20-5.40); White Blood Cell (WBC) Count 11.9 10x3/uL (4.8-10.8)
== END 2024-05-17 16:35 | disposition short-term general hospital (02) ==
LOC: BURERS 08:49
DX: E86.0 Dehydration (principal); E11.65 Type 2 diabetes mellitus with hyperglycemia; I16.0 Hypertensive urgency; I10 Essential (primary) hypertension; R11.2 Nausea with vomiting, unspecified; R19.7 Diarrhea, unspecified; I25.10 Atherosclerotic heart disease of native coronary artery without angina pectoris; Z79.4 Long term (current) use of insulin; Z79.01 Long term (current) use of anticoagulants; Z79.899 Other long term (current) drug therapy; Z87.891 Personal history of nicotine dependence
CPT/HCPCS: 51701; 74177; 80053; 81001; 82010; 82330; 82435; 82803; 83605; 83690; 84132; 84295; 84484; 85014; 85025; 96361; 96374; 96375; 99285; Q9967; J0360; J1815; J2405; J2470; J2550

== ENCOUNTER 2025-02-26 16:23 | Inpatient (IN) | payer OTHER ==
[2025-02-26 20:06] VITALS: BMI 31.3
[2025-02-26] MEDS ORDERED: Glucagon 1 MG/ML KIT IM PRN (20:40)
[2025-02-26] MEDS ORDERED: Dextrose 50% Abboject 50 ML SYRINGE SLOW IVP PRN (20:40)
[2025-02-26] MEDS: Apixaban 2.5 MG TAB PO SCH ×2 (21:06→22:58)
[2025-02-26] MEDS: HYDROcodone/Acetaminophen 5/325 mg Tablet PO PRN (21:06)
[2025-02-26] MEDS: Rosuvastatin 10 MG TAB PO SCH (21:06)
[2025-02-26] MEDS: Lantus 1000 UNITS/10 ML VIAL SC SCH (21:07)
[2025-02-26] MEDS: Lisinopril 20 MG TAB PO SCH (21:12)
[2025-02-26] MEDS: Apixaban 5 MG TAB PO SCH (22:02)
[2025-02-27] MEDS: Methocarbamol 500 MG TAB PO PRN (03:24)
[2025-02-27 05:07] LABS: #Basophils 0.1 thou/uL (0.0-0.2); #Eosinophils 0.2 thou/uL (0.0-0.7); #Lymphocytes 1.4 thou/uL (1.20-3.40); #Monocytes 0.7 thou/uL (0.11-0.59); #Neutrophils 4.5 thou/uL (1.40-6.50); %Basophils 1.0 % (0.0-1.0); %Eosinophils 3.1 % (0.0-10.0); %Lymphocytes 19.9 % (21.0-51.0); %Monocytes 10.6 % (0.0-10.0); %Neutrophils 65.4 % (42.0-75.0); Hematocrit 30.1 % (36.0-47.0); Hemoglobin 11.1 g/dL (12.0-16.0); Mean Corpuscular Hemoglobin 29.4 pg (27.0-31.0); Mean Corpuscular Volume 79.7 fl (78.0-98.0); Platelet Count 272 10x3/uL (130-400); Red Blood Cell (RBC) Count 3.78 mill/uL (4.20-5.40); White Blood Cell (WBC) Count 6.9 10x3/uL (4.8-10.8)
[2025-02-27 05:13] LABS: Anion Gap 16 mmol/L (10-20); BUN (Urea Nitrogen) 23 mg/dL (9.8-20.1); Calc. Creatinine Clearance 41 mL/min (70-130); Calcium 8.8 mg/dL (7.8-10.44); Carbon Dioxide 22 mmol/L (23-31); Chloride 104 mmol/L (98-107); Glucose 138 mg/dL (83-110); Potassium 3.6 mmol/L (3.5-5.1); Sodium 138 mmol/L (136-145)
[2025-02-27] MEDS ORDERED: Non-Formulary Item 1 EACH (Cilostazol [Cilostazol] 50 MG Tablet) PO SCH (07:30)
[2025-02-27] MEDS: CO Q-10 CAPSULE 50 MG PO SCH (08:24)
[2025-02-27] MEDS: Multivit, Therapeutic 1 TAB PO SCH (08:26)
[2025-02-27] MEDS: Pantoprazole 40 MG DR.TAB PO SCH (08:26)
[2025-02-27] MEDS: Metoprolol Succinate XL 25 MG ER.TAB PO SCH (08:26)
[2025-02-27] MEDS: Potassium Bicarbonate/Cit Ac 20 MEQ TAB PO SCH (08:26)
[2025-02-27] MEDS: Furosemide 20 MG TAB PO SCH (08:26)
[2025-02-27] MEDS ORDERED: Apixaban 5 MG TAB PO SCH (09:00)
[2025-02-27 11:31] VITALS: BMI 31.3
[2025-02-27] MEDS ORDERED: Dextrose 50% Abboject 50 ML SYRINGE SLOW IVP PRN (12:43)
[2025-02-27] MEDS ORDERED: Glucagon 1 MG/ML KIT IM PRN (12:43)
[2025-02-27] MEDS: Apixaban 2.5 MG TAB PO SCH (20:53)
[2025-02-28] MEDS: Lantus 1000 UNITS/10 ML VIAL SC SCH (08:20)
[2025-02-28] MEDS ORDERED: INSULIN GLARGINE SC SCH (09:00)
[2025-02-28] MEDS ORDERED: PREFILLED SC SCH (09:00)
[2025-03-02] MEDS: Acetaminophen 325 MG TAB PO PRN (14:40)
[2025-03-03] MEDS: Calcium Carbonate 500 MG ChewTAB PO PRN (13:40)
[2025-03-03] MEDS: HYDROcodone/Acetaminophen 10/325 mg Tablet PO PRN (16:55)
[2025-03-04 05:20] LABS: #Basophils 0.1 thou/uL (0.0-0.2); #Eosinophils 0.3 thou/uL (0.0-0.7); #Lymphocytes 2.0 thou/uL (1.20-3.40); #Monocytes 0.9 thou/uL (0.11-0.59); #Neutrophils 6.1 thou/uL (1.40-6.50); %Basophils 1.1 % (0.0-1.0); %Eosinophils 2.9 % (0.0-10.0); %Lymphocytes 21.7 % (21.0-51.0); %Monocytes 9.1 % (0.0-10.0); %Neutrophils 65.2 % (42.0-75.0); Hematocrit 33.3 % (36.0-47.0); Hemoglobin 11.7 g/dL (12.0-16.0); Mean Corpuscular Hemoglobin 28.3 pg (27.0-31.0); Mean Corpuscular Volume 80.4 fl (78.0-98.0); Platelet Count 417 10x3/uL (130-400); Red Blood Cell (RBC) Count 4.14 mill/uL (4.20-5.40); White Blood Cell (WBC) Count 9.3 10x3/uL (4.8-10.8)
[2025-03-04 05:21] LABS: Anion Gap 17 mmol/L (10-20); BUN (Urea Nitrogen) 30 mg/dL (9.8-20.1); Calc. Creatinine Clearance 36 mL/min (70-130); Calcium 8.9 mg/dL (7.8-10.44); Carbon Dioxide 20 mmol/L (23-31); Chloride 106 mmol/L (98-107); Glucose 71 mg/dL (83-110); Potassium 3.5 mmol/L (3.5-5.1); Sodium 139 mmol/L (136-145)
[2025-03-04] MEDS: Lantus 1000 UNITS/10 ML VIAL SC SCH (08:53)
[2025-03-08 08:33] VITALS: BP 135/66
[2025-03-08 12:29] VITALS: TEMP 97.8
== END 2025-03-08 13:20 | disposition home or self-care (01) | DRG 561 ==
LOC: BURMED 19:32
PROVIDERS: ADMIT Family Medicine; ATTEND Nurse Practitioner
PROC: F07Z9ZZ Gait Training/Functional Ambulation Treatment (ICD-10-PCS; principal; 2025-02-26)
DX: S82.001D Unspecified fracture of right patella, subsequent encounter for closed fracture with routine healing (principal); I73.9 Peripheral vascular disease, unspecified; J44.9 Chronic obstructive pulmonary disease, unspecified; I10 Essential (primary) hypertension; I25.10 Atherosclerotic heart disease of native coronary artery without angina pectoris; I48.91 Unspecified atrial fibrillation; R91.1 Solitary pulmonary nodule; Z79.899 Other long term (current) drug therapy; Z79.01 Long term (current) use of anticoagulants; Z79.4 Long term (current) use of insulin; Z79.84 Long term (current) use of oral hypoglycemic drugs; Z87.891 Personal history of nicotine dependence; Z98.890 Other specified postprocedural states; Z90.49 Acquired absence of other specified parts of digestive tract; Z90.710 Acquired absence of both cervix and uterus
CPT/HCPCS: 36415; 36416; 80048; 83036; 85025; J1815

== ENCOUNTER 2025-03-20 10:34 | Emergency (ER) | payer OTHER ==
[2025-03-20 11:06] LABS: Specific Gravity, Urine 1.015 (1.005-1.030)
[2025-03-20 11:11] LABS: Glucose, Urine (Dipstick) Unable to Interpret mg/dL (Negative)
[2025-03-20 11:12] LABS: Leukocyte Unable to Interpret (Negative); Protein, Urine (Dipstick) Unable to Interpret mg/dL (Neg-Trace)
[2025-03-20 11:14] LABS: Bacteria/HPF None Seen HPF (None Seen); CAUTI Indications for Culture Dysuria,urgency,freq; RBC/HPF Greater than 50 HPF (0-3); WBC/HPF 0-3 HPF (0-3)
[2025-03-20 11:15] LABS: Urine Culture Reflex No No
[2025-03-20 11:23] LABS: INR-International Normal Ratio 1.1; Prothrombin Time 14.6 sec (12.0-14.7)
[2025-03-20 11:24] LABS: PTT 38.6 sec (22.9-36.1)
[2025-03-20 11:32] LABS: ALT (SGPT) 25 U/L (Less than 34); AST (SGOT) 37 U/L (11-34); Albumin 3.4 g/dL (3.1-4.5); Alkaline Phosphatase 144 U/L (40-110); Anion Gap 17 mmol/L (10-20); BUN (Urea Nitrogen) 37 mg/dL (9.8-20.1); Bilirubin, Total 0.5 mg/dL (0.3-1.2); Calc. Creatinine Clearance 0 mL/min (70-130); Calcium 9.0 mg/dL (7.8-10.44); Carbon Dioxide 21 mmol/L (23-31); Chloride 101 mmol/L (98-107); Globulin 3.7 g/dL (2.4-3.5); Glucose 155 mg/dL (83-110); Lipase 11 U/L (8-78); Potassium 3.9 mmol/L (3.5-5.1); Sodium 135 mmol/L (136-145)
[2025-03-20 11:36] LABS: Hematocrit 34.4 % (36.0-47.0); Hemoglobin 12.3 g/dL (12.0-16.0); MDiff Complete? YES; Mean Corpuscular Hemoglobin 28.2 pg (27.0-31.0); Mean Corpuscular Volume 79.0 fl (78.0-98.0); Platelet Count 283 10x3/uL (130-400); Red Blood Cell (RBC) Count 4.41 mill/uL (4.20-5.40); White Blood Cell (WBC) Count 7.5 10x3/uL (4.8-10.8)
[2025-03-20] MEDS ORDERED: HYDROcodone/Acetaminophen 10/325 mg Tablet ONE (12:08)
[2025-03-20] MEDS ORDERED: cefTRIAXone (ROCEPHIN) 1 GM VIAL ONE (13:04)
== END 2025-03-20 13:49 | disposition short-term general hospital (02) ==
LOC: BURERS 10:34
DX: N39.0 Urinary tract infection, site not specified (principal); R31.0 Gross hematuria; N17.9 Acute kidney failure, unspecified; I12.9 Hypertensive chronic kidney disease with stage 1 through stage 4 chronic kidney disease, or unspecified chronic kidney disease; E11.22 Type 2 diabetes mellitus with diabetic chronic kidney disease; N18.9 Chronic kidney disease, unspecified; I25.10 Atherosclerotic heart disease of native coronary artery without angina pectoris; J44.9 Chronic obstructive pulmonary disease, unspecified; E11.51 Type 2 diabetes mellitus with diabetic peripheral angiopathy without gangrene; Z87.891 Personal history of nicotine dependence; Z79.4 Long term (current) use of insulin; Z79.899 Other long term (current) drug therapy
CPT/HCPCS: 74176; 80053; 81001; 83690; 85025; 85610; 85730; 87086; J0696; 36415; 96374

== ENCOUNTER 2025-06-14 22:11 | Emergency (ER) | payer MEDICARE, OTHER ==
[2025-06-14 22:58] LABS: #Basophils 0.1 thou/uL (0.0-0.2); #Eosinophils 0.2 thou/uL (0.0-0.7); #Lymphocytes 2.7 thou/uL (1.20-3.40); #Monocytes 0.6 thou/uL (0.11-0.59); #Neutrophils 3.2 thou/uL (1.40-6.50); %Basophils 1.2 % (0.0-1.0); %Eosinophils 3.6 % (0.0-10.0); %Lymphocytes 39.7 % (21.0-51.0); %Monocytes 8.5 % (0.0-10.0); %Neutrophils 46.9 % (42.0-75.0); Hematocrit 39.6 % (36.0-47.0); Hemoglobin 13.0 g/dL (12.0-16.0); Mean Corpuscular Hemoglobin 26.8 pg (27.0-31.0); Mean Corpuscular Volume 81.9 fl (78.0-98.0); Platelet Count 218 10x3/uL (130-400); Red Blood Cell (RBC) Count 4.84 mill/uL (4.20-5.40); White Blood Cell (WBC) Count 6.9 10x3/uL (4.8-10.8)
[2025-06-14 23:15] LABS: ALT (SGPT) 25 U/L (Less than 34); AST (SGOT) 37 U/L (11-34); Albumin 3.3 g/dL (3.1-4.5); Alkaline Phosphatase 97 U/L (40-110); Anion Gap 21 mmol/L (10-20); BUN (Urea Nitrogen) 52 mg/dL (9.8-20.1); Bilirubin, Total 0.3 mg/dL (0.3-1.2); Calc. Creatinine Clearance 0 mL/min (70-130); Calcium 8.5 mg/dL (7.8-10.44); Carbon Dioxide 29 mmol/L (23-31); Chloride 91 mmol/L (98-107); Globulin 3.4 g/dL (2.4-3.5); Glucose 267 mg/dL (83-110); Potassium 3.7 mmol/L (3.5-5.1); Sodium 137 mmol/L (136-145)
[2025-06-14] MEDS ORDERED: Aspirin Chewable 81 MG TAB ONE (23:18)
[2025-06-14 23:19] LABS: Troponin I 0.277 ng/mL (< 0.028)
[2025-06-15] MEDS ORDERED: Enoxaparin 100 MG (1 mL) SYRINGE ONE (00:14)
== END 2025-06-15 01:20 | disposition short-term general hospital (02) ==
LOC: BURERS 22:11
DX: R07.9 Chest pain, unspecified (principal); R79.1 Abnormal coagulation profile; M54.2 Cervicalgia; N28.9 Disorder of kidney and ureter, unspecified; I25.10 Atherosclerotic heart disease of native coronary artery without angina pectoris; E11.9 Type 2 diabetes mellitus without complications; I10 Essential (primary) hypertension; I25.2 Old myocardial infarction; Z87.891 Personal history of nicotine dependence
CPT/HCPCS: 71046; 80053; 83880; 84484; 85025; 85379; 87428; 93005; 94760; J1650